=== PATIENT | male | born 1945 | race African-American/Black ===

== ENCOUNTER 2019-07-19 15:03 | Emergency (ER) | payer OTHER, MEDICARE ==
[2019-07-19 15:37] LABS: ABSOLUTE BASOPHILS # (AUTO) 0.1 10^3/uL (0.0-0.2); ABSOLUTE EOSINOPHILS # (AUTO) 0.1 10^3/uL (0.0-0.6); ABSOLUTE LYMPHOCYTES (AUTO) 1.6 10^3/uL (0.5-4.7); ABSOLUTE MONOCYTES (AUTO) 0.6 10^3/uL (0.1-1.4); ABSOLUTE NEUT (AUTO) 6.7 10^3/uL (1.7-8.2); BASOPHILS % (AUTO) 0.6 % (0-2); HEMATOCRIT 35.6 % (37.9-51.0); HEMOGLOBIN 11.3 g/dL (13.5-17.0); LYMPHOCYTES % (AUTO) 17.9 % (13-45); MEAN CORPUSCULAR HEMOGLOBIN 24.5 pg (27.0-33.4); MEAN CORPUSCULAR HGB CONC 31.7 g/dL (32.0-36.0); MEAN CORPUSCULAR VOLUME 77 fl (80-97); MONOCYTES % (AUTO) 6.7 % (3-13); PLATELET COUNT 407 10^3/uL (150-450); RED BLOOD COUNT 4.61 10^6/uL (4.35-5.55); RED CELL DISTRIBUTION WIDTH 18.9 % (11.5-14.0); SEGMENTED NEUTROPHILS % (AUTO) 73.8 % (42-78); TOTAL CELLS COUNTED % (AUTO) 100 %
[2019-07-19 15:54] LABS: ALBUMIN 3.4 g/dL (3.5-5.0); ALKALINE PHOSPHATASE 102 U/L (38-126); ANION GAP 12 (5-19); ASPARTATE AMINO TRANSFERASE 17 U/L (17-59); BILIRUBIN,DIRECT 0.2 mg/dL (0.0-0.4); BILIRUBIN,TOTAL 0.3 mg/dL (0.2-1.3); BLOOD UREA NITROGEN 21 mg/dL (7-20); CALCIUM 9.7 mg/dL (8.4-10.2); CARBON DIOXIDE 23 mmol/L (22-30); CHLORIDE 105 mmol/L (98-107); CREATINE KINASE 30 U/L (55-170); GLUCOSE 101 mg/dL (75-110); POTASSIUM 3.5 mmol/L (3.6-5.0); TOTAL PROTEIN 6.7 g/dL (6.3-8.2)
--- NOTE | 2019-07-19 15:55 | ER Document Report ---
ED General - General Chief Complaint: Blood Pressure Problem Stated Complaint: BLOOD PRESSURE ISSUES Time Seen by Provider: 07/19/19 15:46 Mode of Arrival: Medic Information source: Patient, Relative TRAVEL OUTSIDE OF THE [place] IN LAST 30 DAYS: No - HPI Patient complains to provider of: weakness Onset: Just prior to arrival - Pt. had episode of weakness earlier today -- felt dizzy but did not pass out. EMS called and BP was low. Pt. transorted here for further evaluation. At present, he feels fine and "wants to go home." - Related Data Allergies/Adverse Reactions: No Known Allergies Allergy (Unverified 07/19/19 15:19) Home Medications: allopurinol 200mg qd. amlodipine 1 tab every other day. aspirin 81mg qd. carvedilol 25mg BID. colchicine 1.2mg prn. HCTZ 1 tab qd. synthroid 1 tab qd. nicotine 7mg/24hr qd. sildenafil citrate 1/2tab 30-60min before intercourse. simvastatin 40mg every night Past Medical History - General Information source: Patient, Relative - Social History Smoking Status: Unknown if Ever Smoked Family History: None Patient has suicidal ideation: No Patient has homicidal ideation: No Review of Systems - Review of Systems Constitutional: See HPI, Weakness EENT: No symptoms reported Cardiovascular: No symptoms reported Respiratory: No symptoms reported Gastrointestinal: No symptoms reported Musculoskeletal: No symptoms reported Neurological/Psychological: No symptoms reported Physical Exam - Vital signs Vitals: Temp Resp BP Pulse Ox 97.4 F 15 135/80 H 100 07/19/19 15:13 07/19/19 15:13 07/19/19 15:13 07/19/19 15:13 - General General appearance: Appears well In distress: None - HEENT Pharynx: Normal Neck: Normal - Respiratory Respiratory status: No respiratory distress Breath sounds: Normal - Cardiovascular Rhythm: Regular Heart sounds: Normal auscultation Murmur: No - Abdominal Inspection: Normal Bowel sounds: Normal Tenderness: Nontender - Extremities General upper extremity: Normal inspection General lower extremity: Normal inspection - Neurological Neuro grossly intact: Yes Cognition: Normal Orientation: AAOx4 Speech: Normal Cranial nerves: Normal Cerebellar coordination: Normal Motor strength normal: LUE, RUE, LLE, RLE Course - Re-evaluation Re-evalutation: 07/19/19 17:07 pt felt well at time of d/c -- BP 135/80. Expressed desire to go home with . - Vital Signs Vital signs: Temp Pulse Resp BP Pulse Ox 97.4 F 30 H 139/70 H 98 07/19/19 15:13 07/19/19 17:01 07/19/19 17:01 07/19/19 17:01 - Laboratory Result Diagrams: 07/19/19 15:30 07/19/19 15:30 Laboratory results interpreted by me: 07/19/19 07/19/19 15:30 15:30 Hgb 11.3 L Hct 35.6 L MCV 77 L MCH 24.5 L MCHC 31.7 L RDW 18.9 H Potassium 3.5 L BUN 21 H Creatinine 1.32 H Est GFR (MDRD) Non-Af 53 L Creatine Kinase 30 L Albumin 3.4 L - EKG Interpretation by Me EKG shows normal: Sinus rhythm Rate: Normal Rhythm: NSR - nsr with non-specific st-t changes and inverted t waves in 3, avf, v3-v5 Discharge - Discharge Clinical Impression: Weakness Condition: Stable Disposition: HOME, SELF-CARE Additional Instructions: rest, continue current meds, return if worse
[2019-07-19 17:03] VITALS: BP 139/70
--- NOTE | 2019-07-19 22:29 | EKG REPORT ---
SEVERITY:- ABNORMAL ECG - SINUS RHYTHM NONSPECIFIC T ABNORMALITIES, INFERIOR LEADS MINIMAL ST ELEVATION, ANTERIOR LEADS : Confirmed by: Jesse Ayala MD 19-Jul-2019 22:28:57
== END 2019-07-19 17:28 | disposition home or self-care (01) ==
LOC: ER 15:03
DX: R53.1 Weakness (principal); R42 Dizziness and giddiness; Z79.899 Other long term (current) drug therapy
CPT/HCPCS: 36415; 80053; 82550; 84484; 85025; 93005; 93010; 99284